=== PATIENT | female | born 1970 | race Two or more races ===

== ENCOUNTER 2024-12-07 12:17 | Outpatient (REF) | payer OTHER, SELFPAY ==
--- OUTSIDE RECORDS SUMMARY | 2024-12-07 09:20 | XMS_ITS | Encounter Summary ---
Author Organization [facility] Address [address] [place] [address] Care Team Providers Care Computerized Mill Mill Recorder Name Role Phone Jamie Nascimento DO Primary Care Provider [phone]- [phone] Jamie Nascimento DO Unavailable [phone] Reason for Visit * Reason Comments Pre-op Visit Gynecologic Exam Encounter Details Date Type Department Care Team (Late st Contact Info) Description 12/07/2024 9:20 AM EDT Office Visit [facility] [address] [facility] [id number] Placido Hendrix DO [address] [place], [facility]11 Pre-op examination; Pelvic pain; Dyspareunia in female; [...] AM EDT Reason for Appointment: Patient ID: hSey Plunkett is a 54 y.o. female who presents for Pre-op Visit and Gynecologic Exam Patient presents today for Pre Op/Annual appointment. Patient is scheduled to undergo Diagnostic Laparoscopy, possible JOSE ANGEL, possible FOE, possible BSO and D&C Hysteroscopy, possible Myosure on 12-31-[address] Hendrix at [facility]. MEDICATIONS Current Outpatient Medications Medication Instructions Ascorbic [...] Date KNEE ARTHROPLASTY Right x4 2010, 2013 [place] LAP, SURG, RADFREQ ABLATION OF UTERINE FIBROID(S), [...] nursing note reviewed. Exam conducted with a senior lead java developer present. Vitals: Estimated body mass index is [...] reviewed, and patient is to proceed to [facility] OR. Follow Up: Patient is to follow up between 1-2 weeks post operative to assess proper healing and recovery fromprocedure. Documented by Irene Leo LPN on behalf of: Placido Hendrix DO documented in this encounter Plan of Treatment Upcoming Encounters Date Type Department Care Team (Late st Contact Info) Description 01/06/2025 11:20 AM EDT Office Visit [facility] [address] [place] [address] Placido Hendrix DO [address] [place] [address] Scheduled Orders Name Type Priority Associated Diagnoses [...] osteoporosis documented in this encounter Care Teams Computerized Mill Mill Recorder Relationship Specialty Start Date End Date Jamie Nascimento DO [address] [place] [address] PCP - General Family Medicine 10/11/22 Jamie Nascimento DO [address] [place] [address] PCP - Medical [place] [employer] 11/08/19 05/04/99 documented as of this encounter
--- OUTSIDE RECORDS SUMMARY | 2024-12-07 12:23 | XMS_ITS | Encounter Summary ---
Author Organization [facility] Address [address] [place] [address] Care Team Providers Care Locomotive Inspector Name Role Phone Jamie Nascimento DO Primary Care Provider [phone]- [phone] Jamie Nascimento DO Unavailable [phone] Encounter Details Date Type Department Care Team (Late st Contact Info) Description 10/11/2022 [facility] [address] [facility] [address] [place] [address] Jamie Nascimento, DO [address] [facility] [address] [place] [address] Social History Tobacco Use Types Packs/Day Years Used Date Smoking Tobacco: Never Smokeless Tobacco: Never Tobacco Cessation:Counseling Given: Not Answered Alcohol Use Standard Drinks/Week Comments Not Currently 0 (1 standard drink = 0.6 oz pure alcohol) caffeine intake: 1-2 cups per day PHQ-2 Answer Date Recorded Patient Health Questionnaire-2 Score 0 10/11/2022 Comments Unknown Sex and Gender Information Value Date Recorded Sex Assigned at Not on file Legal Sex Female 6:42 PM EDT Gender Identity Not on file Sexual Orientation Not on file documented as of this encounter Functional Status * Over the past 2 weeks, how often have you been bothered by any of the following problems? Question Answer Date of Assessment Author Little interest or pleasure in doing things Not at all 10/11/2022 9:50 AM EDT Zina Conteh LPN Feeling down, depressed, or hopeless Not at all 10/11/2022 9:50 AM EDT Zina Conteh LPN Patient Health Questionnaire-2 Score 0 10/11/2022 9:50 AM EDT Genesis Conteh LPN documented as of this encounter Plan of Treatment Upcoming Encounters Date Type Department Care Team (Late st Contact Info) Description 01/06/2025 11:20 AM EDT Office Visit [facility] [address] [facility] [place] [phone] Placido Hendrix DO [address] [place] [address] documented as of this encounter Visit Diagnoses Not on filedocumented in this encounter Care Teams Locomotive Inspector Relationship Specialty Start Date End Date Jamie Nascimento DO [address] [facility] [address] [place] [address] PCP - General Family Medicine 10/11/22 Jamie Nascimento DO [address] [facility] [address] [place] [address] PCP - Medical [place] [employer] 11/08/19 05/04/99 documented as of this encounter
--- OUTSIDE RECORDS SUMMARY | 2024-12-07 12:23 | XMS_ITS | Clinical Summary ---
Author Organization [facility] tem Address [id number] [address] [place] [address] Care Team Providers Care Gunite Mixer Name Role Phone Benarturo Madison M Primary Care Provider [phone]- [phone] Allergies No known active allergies Medications * This document contains information received from the source organization and may not represent a complete record from that organization. No known medications Active Problems Problem Noted Date Diagnosed Date Major depressive disorder, single episode, mild 09/30/2019 Social History Tobacco Use Types Packs/Day Years Used Date Smoking Tobacco: Never Smokeless Tobacco: Never Alcohol Use Standard Drinks/Week Comments Yes 0 (1 standard drink = 0.6 oz pur e alcohol) Childcare Answer Date Recorded Childcare Unknown 10/14/2018 Employment Answer Date Recorded Employment Unknown 10/14/2018 Purpose - Life Answer Date Recorded Purpose and direction in life Unknown Comments Unknown Sex and Gender Information Value Date Recorded Sex Assigned at Not on file Legal Sex Female 11:48 AM EDT Gender Identity Not on file Sexual Orientation Not on file Last Filed Vital Signs Vital Sign Reading Time Taken Comments Blood Pressure 143/83 09/03/2019 6:15 PM EDT Pulse 73 09/03/2019 5:21 PM EDT Temperature 36.4 C (97.6 F) 09/03/2019 5:21 PM EDT Respiratory Rate 16 09/03/2019 5:21 PM EDT Oxygen Saturation 98% 09/03/2019 6:20 PM EDT Inhaled Oxygen Concentration - - Weight 81.6 kg (180 lb) 09/03/2019 5:21 PM EDT Height 170.2 cm (5' 7 ) 09/03/2019 5:21 PM EDT Body Mass Index 28.19 09/03/2019 5:21 PM EDT Plan of Treatment Health Maintenance Due Date Last Done Comments Depression Screening 1980 Tobacco Screening 1980 Adult BMI Screening 1986 DTaP,Tdap and Td Vaccines (1 - Tdap) 07/08/1987 Pap Smear 1989 Zoster (Shingles) Vaccine (1 of 2) 2018 Influenza Vaccine 01/03/2025 Medical Devices Not on file Insurance [employer] Care Teams Gunite Mixer Relationship Specialty Start Date End Date Madison Nascimento DO [address] [place] [address] PCP - General Family Medicine 09/03/19
--- OUTSIDE RECORDS SUMMARY | 2024-12-07 12:23 | XMS_ITS | Clinical Summary ---
Author Organization [facility] Address [address] [place] [address] Phone Care Team Providers Care Assistance Specialist Name Role Phone Unavailable Primary Care Provider Unavailabl e Social History Tobacco Use Types Packs/Day Years Used Date Smoking Tobacco: Never Assessed Comments Unknown Sex and Gender Information Value Date Recorded Sex Assigned at Not on file Legal Sex Female 12:03 PM EDT Gender Identity Not on file Sexual Orientation Not on file Plan of Treatment Not on file
--- OUTSIDE RECORDS SUMMARY | 2024-12-07 12:23 | XMS_ITS | Clinical Summary ---
Author Organization [facility] Address [address] [place] [address] Care Team Providers Care Interior Design Instructor Name Role Phone Jamie Nascimento DO Primary Care Provider +1- [phone] Jamie Nascimento DO Unavailable [phone] Allergies No known active allergies Medications Multiple Vitamin (Multi Vitamin) tablet 1 (one) time each day at the same time. Active Vitamin D-Vitamin K (VITAMIN K2-VITAMIN D3 PO) Take by mouth Active Ascorbic Acid (VITAMIN C ER PO) Take by mouth Active magnesium 30 MG tablet Take 30 mg by mouth in the morning and 30 mg before bedtime. Active Active Problems Problem Noted Date Diagnosed Date Mixed hyperlipidemia 10/11/2022 IFG (impaired fasting glucose) 10/11/2022 Major depressive disorder, single episode, mild 09/30/2019 Vitamin D deficiency 10/14/2018 Resolved Problems Problem Noted Date Diagnosed Date Resolved Date Hypertriglyceridemia 08/07/2020 023 Obesity 08/07/2020 11/11/2022 Abnormal mammogram 07/11/2020 3 Internal derangement of right shoulder 12/22/2019 11/11/2022 Closed fracture of proximal end of right humerus with routine healing 09/20/2019 11/11/2022 Stress 10/15/2018 11/11/2022 Shoulder joint pain 06/09/2017 11/12/19 23 Encounters Date Type Department Care Team Description 12/07/2024 9:20 AM EDT Office Visit [facility] [place] [facility] [address] [place] [address] [place] [id number] Placido Hendrix DO Pre-op examination; Pelvic pain; Dyspareunia in female; Intramural and submucous leiomyoma of uterus; Well woman exam with routine gynecological exam; Osteoporosis, post-menopausal 11/01/2024 3:10 PM EDT [facility] [address] [place] [address] [place] [address] Placido Hendrix DO Pelvic pain in female; History of uterine fibroid 11/01/2024 Bamboo flowsheet [facility] [address] [place] [address] [place] [address] Placido Hendrix DO 10/14/2024 Orders Only [facility] [address] [facility] [place] [address] Gissell King CNM Pelvic pain in female; History of uterine fibroid 10/13/2024 Results [facility] [address] [facility] [place] [address] Claritza Marie MA 10/06/2024 3:00 PM EDT Ancillary Procedure [facility] [address] [place] [address] Abnormal ultrasound of pelvis; History of uterine fibroid 10/06/2024 Travel 10/05/2024 Travel 09/09/2024 Results [facility] [address] [facility] [place] [address] Claritza Marie MA 09/09/2024 Orders Only [facility] [address] [facility] [place] [address] Gissell King CNM Abnormal ultrasound of pelvis; History of uterine fibroid from Last 3 Months Immunizations Immunization Administration Dates Next Due Zoster, Recombinant 01/14/2021 Family History Medical History Relation Name Comments Esophageal cancer Father Heart disease Father Stroke Father Diabetes Maternal Grandfather Hypertension Maternal Grandfather Diabetes Maternal Grandmother Hypertension Maternal Grandmother Diabetes Mother Hypertension Mother Stomach cancer Paternal Grandmother Relation Name Status Comments Father Maternal Grandfather Maternal Grandmother Mother Paternal Grandmother Social History Tobacco Use Types Packs/Day Years [...] Pressure 116/74 12/07/2024 9:48 AM EDT Pulse 62 08/06/2024 8:28 AM EDT Temperature 36.4 C (97.5 F) 08/06/2024 8:28 AM EDT Respiratory Rate - - Oxygen Saturation 97% 08/06/2024 8:28 AM EDT Inhaled Oxygen Concentration - - Weight 88.5 kg (195 lb) 12/07/2024 9:48 AM EDT Height 170.2 cm (5' 7 ) 08/06/2024 8:28 AM EDT Body Mass Index 30.54 08/06/2024 8:28 AM EDT Plan of Treatment Upcoming Encounters Date Type Department Care Team (Late st Contact Info) Description 01/06/2025 11:20 AM EDT Office Visit [facility] [address] [place] [address] Placido Hendrix DO [address] [facility] [place] [address] Health Maintenance Due Date Last Done Comments CT Colonography 1970 FIT-DNA 1970 FIT 1970 FOBT 1970 Sigmoidoscopy 1970 Influenza Vaccine (#1) 2025 Pap Smear 07/08/2025 07/08/2022 Mammogram 08/18/2025 08/18/2024, 07/03, 07/08/2022, Additional history exists Cervical Cancer Screening 07/09/2027 HPV/Cotest 07/09/2027 07/08/2022, 09/29/2018 Colonoscopy 11/11/2028 11/11/2018 Colorectal Cancer Screening 11/11/2028 Procedures Procedure Name Priority Date/Time Associated Diagnosis Comments MR PELVIS W AND WO CONTRAST Routine 10/06/2024 4:12 PM EDT Abnormal ultrasound of pelvis History of uterine fibroid BI MAMMOGRAM SCREENING TOMOSYNTHESIS BILATERAL Routine 08/18/2024 4:18 PM EDT Breast cancer screening by mammogram THINPREP PAP AND HPV MRNA E6/E7 REFLEX HPV 16,18/45 Routine 07/08/2022 PAP SMEAR Routine 07/08/2022 12:00 AM EST COLONOSCOPY Routine 11/11/2018 12:00 PM EDT from Last 3 Months or Most Recently Relevant to Health Maintenance Results * MR pelvis w and wo contrast (10/06/2024 4:12 PM EDT) Anatomical Region Laterality Modality Body, Pelvis Magnetic Resonan ce 10/08/2024 12:4 7 PM EDT Narrative 10/08/2024 12:47 PM EDT EXAM: MRI Pelvis with and without Contrast: REASON FOR EXAM: Abnormal pelvic ultrasound, pelvic pain. COMPARISON: Pelvic ultrasound August 24, 2024. TECHNIQUE: Multiplanar multisequence MRI evaluation is performed with and without contrast. CONTRAST: Vueway 9 mL FINDINGS: Regional soft tissues and muscles demonstrate normal bulk, signal intensity and symmetry. The neurovascular bundles of the pelvis are intact. There is no pelvic ascites. The visualized bowel is normal. The bladder is partially decompressed. Multiple nabothian cysts are present within the cervix. These are well circumscribed, T2 hyperintense, the largest measuring approximately 7 mm in diameter and nonenhancing. The uterus is diminutive. Normal signal intensity is absent. The endometrial stripe is not visualized as a discrete structure. Multiple, slightly T2 hypointense, T1 isointense masses are present within the uterus, predominantly the left uterine body -- the most discrete subserosal 1.9 x 2.07 x 2.36 cm and just above this finding a 2 cm faintly rim-enhancing nodule, myometrial. The uterus overall measures 4.89 x 3.63 x 3.57 cm. The ovaries are not enlarged. Bone marrow signal intensity is physiologic. IMPRESSION: 1. Multiple subserosal and myometrial intrauterine fibroids with ill-defined uterine architecture consistent with diffuse infiltration. 2. Endometrium not visualized due to architectural distortion. 3. Nabothian cysts. This report is generated using voice recognition reporting (MyCosmik). On occasion, MyCosmik erroneously drops words from the report or replaces the spoken word with a similar sounding word. Please call with any questions/concerns regarding the report. Dictated and transcribed 10/07/2024/nico This report has been electronically signed and approved by the interpreting radiologist. Procedure Note Bob Cabrera MD - 10/08/2024 EXAM: MRI Pelvis with and without Contrast: REASON FOR EXAM: Abnormal pelvic ultrasound, pelvic pain. COMPARISON: Pelvic ultrasound August 24, 2024. TECHNIQUE: Multiplanar multisequence MRI evaluation is performed with andwithout contrast. CONTRAST: Vueway 9 mL FINDINGS: Regional soft tissues and muscles demonstrate normal bulk, signalintensity and symmetry. The neurovascular bundles of the pelvis are intact. There is no pelvic ascites. The visualized bowel is normal. The bladder is partially decompressed. Multiple nabothian cysts are present within the cervix. These are wellcircumscribed, T2 hyperintense, the largest measuring approximately 7 mmin diameter and nonenhancing. The uterus is diminutive. Normal signal intensity is absent. Theendometrial stripe is not visualized as a discrete structure. Multiple,slightly T2 hypointense, T1 isointense masses are present within theuterus, predominantly the left uterine body -- the most discretesubserosal 1.9 x 2.07 x 2.36 cm and just above this finding a 2 cm faintlyrim-enhancing nodule, myometrial. The uterus overall measures 4.89 x 3.63x 3.57 cm. The ovaries are not enlarged. Bone marrow signal intensity is physiologic. IMPRESSION: 1. Multiple subserosal and myometrial intrauterine fibroids withill-defined uterine architecture consistent with diffuse infiltration. 2. Endometrium not visualized due to architectural distortion. 3. Nabothian cysts. This report is generated using voice recognition reporting (MyCosmik).On occasion, La Ruche qui dit Ouicribe erroneously drops words from the report orreplaces the spoken word with a similar sounding word. Please call withany questions/concerns regarding the report. Dictated and transcribed 10/07/2024/nico This report has been electronically signed and approved by theinterpreting radiologist. Gissell White Jenjulia CN IM MRI PROCEDURES Final Res ult * Bilateral screening mammogram with tomosynthesis (08/18/2024 4:18 PM EDT) Anatomical Region Laterality Modality Breast Bilateral Mammography 08/19/2024 11:0 7 AM EDT Impressions 08/19/2024 11:13 AM EDT Impression: No specific evidence of malignancy seen in either breast. BIRADS 2 - Benign Findings DENSITY: The breasts are almost entirely fatty. FOLLOW-UP: Routine Screening Mammogram ELECTRONICALLY SIGNED BY: Pancho Elaine M.D. Narrative 08/19/2024 11:13 AM EDT Examination: BI MAMMOGRAM SCREENING TOMOSYNTHESIS BILATERAL Clinical History: screening Technique: Screening digital mammography study of both breasts was performed with 2-D and 3-D tomosynthesis imaging. Study was compared to the prior exam dated 07/15/2023. Findings: There is no evidence of interval dominant spiculated mass, grouped microcalcifications, or skin thickening which would be suggestive of malignancy. A few benign calcifications are seen on the right. Procedure Note Pancho Elaine MD - 08/19/2024 Examination: BI MAMMOGRAM SCREENING TOMOSYNTHESIS BILATERAL Clinical History: screening Technique: Screening digital mammography study of both breasts wasperformed with 2-D and 3-D tomosynthesis imaging. Study was compared tothe prior exam dated 07/15/2023. Findings: There is no evidence of interval dominant spiculated mass,grouped microcalcifications, or skin thickening which would be suggestiveof malignancy. A few benign calcifications are seen on the right. IMPRESSION: Impression: No specific evidence of malignancy seen in either breast. BIRADS 2 - Benign Findings DENSITY: The breasts are almost entirely fatty. FOLLOW-UP: Routine Screening Mammogram ELECTRONICALLY SIGNED BY: Pancho Elaine M.D. Gissell King [facility] IMG BI PROCEDURES Final Resu lt * THINPREP PAP AND HPV MRNA E6/E7 REFLEX HPV 16,18/45 (07/08/2022) CLINICAL INFORMATION: None given [facility] LMP: NONE GIVEN [facility] PREV. PAP: NONE GIVEN [facility] PREV. BX: NONE GIVEN [facility] SOURCE: None given [facility] STATEMENT OF ADEQUACY: SEE COMMENT [facility] Comment: Satisfactory for evaluation. Endocervical/transformation zone component present. INTERPRETATION/R ESULT: Negative for intraepithelial lesion or malignancy. [facility] INFECTION: Fungal organisms morphologically consistent with Teresa spp. [facility] FLAT SPRING ASSEMBLER : SEE COMMENT [facility] Comment: [facility], CT(ASCP) CT Screening Location: [place] [address] REVIEW FLAT SPRING ASSEMBLER : SEE COMMENT [facility] Comment: [facility], CT(ASCP) CT screening location: [place] [address]. COMMENT SEE COMMENT [facility] Comment: EXPLANATORY NOTE: The Pap is a screening test for cervical cancer. It is not a diagnostic test and is subject to false negative and false positive results. It is most reliable when a satisfactory sample, regularly obtained, is submitted with relevant clinical findings and history, and when the Pap result is evaluated along with historic and current clinical information. HPV MRNA E6/E7 Not Detected Not Detected [facility] Comment: Methodology: Jig Hand-Mediated Amplification This assay detects E6/E7 viral messenger RNA (mRNA) from 14 high-risk HPV types (16,18,31,33,35,39,45,51,52,56,58,59,66,68). Cervical sources are required for HPV testing. If a vaginal source from a patient who has had a total hysterectomy with removal of cervix was submitted, please contact the testing laboratory for alternative testing options. For additional information, please refer to http://education.[employer] Atlantic/faq/TIQ346x4 (This link if provided for information/ educational purposes only.) 07/08/2022 Gissell L Floro CN [facility] Final Result [facility] * Pap Smear (07/08/2022 12:00 AM EST) Swab Cervical swab / Unknown Gissell L Floro CN LAB CYTOLOGY ORDERABLES Ashley l Result EXTERNAL LAB * Colonoscopy (11/11/2018 12:00 PM EDT) Anatomical Region Laterality Modality Endoscopy 11/11/2018 12:0 0 PM EDT Narrative 11/11/2018 12:00 PM EDT PERFORMED AT [facility] LOCATION:[id number] Procedure Note CONVERSION, GENERIC - 09/18/2022 PERFORMED AT [facility] LOCATION:[id number] Jamie Nascimento DO ENDOSCOPY PROCEDURE ORDERA BLES Final Result from Last 3 Months or Most Recently Relevant to Health Maintenance Insurance [employer] Care Teams Interior Design Instructor Relationship Specialty Start Date End Date Jamie Nascimento DO [address] [facility] [address] [place] [address] PCP - General Family Medicine 10/11/22 Jamie Nascimento DO [address] [address] PCP - Medical [facility] 11/08/19 05/04/99
--- OUTSIDE RECORDS SUMMARY | 2024-12-07 12:23 | XMS_ITS | Encounter Summary ---
Author Organization [facility] Address [address] [place] [address] Care Team Providers Care Photoengraving Machine Operator/Tender Name Role Phone Jamie Nascimento DO Primary Care Provider [phone]- [phone] Jamie Nascimento DO Unavailable [phone] Encounter Details Date Type Department Care Team (Late Contact Info) Description 08/24/2024 Results Follow-Up [facility] [address] [place] [address] Gissell King CNM [address] [place], [place] [id number] Social History Tobacco Use Types Packs/Day Years [...] on file documented as of this encounter Plan of Treatment Upcoming Encounters Date Type Department Care Team (Late st Contact Info) Description 01/06/2025 11:20 AM EDT Office Visit [facility] [facility] [address] [facility] [place] [address] Placido Hendrix DO [address] [place] [address] documented as of this encounter Visit Diagnoses Not on filedocumented in this encounter Care Teams Photoengraving Machine Operator/Tender Relationship Specialty Start Date End Date Jamie Nascimento DO [address] [facility] [address] [facility] [address] [place] [address] PCP - General Family Medicine 10/11/22 Jamie Nascimento DO [address] [facility] [address] [place] [address] PCP - Medical [place] [employer] 11/08/19 05/04/99 documented as of this encounter
--- OUTSIDE RECORDS SUMMARY | 2024-12-07 12:23 | XMS_ITS | Encounter Summary ---
Author Organization [facility] Address [address] [place] [address] Care Team Providers Care Spiral Machine Operator Name Role Phone Jamie Nascimento DO Primary Care Provider [phone] Jamie Nascimento DO Unavailable [phone] Encounter Details Date Type Department Care Team (Late Contact Info) Description 09/09/2024 Results Follow-Up [facility] [address] [place] [address] Claritza Marie MA Social History Tobacco Use Types Packs/Day Years [...] 01/06/2025 11:20 AM EDT Office Visit [facility] [address] [facility] [place] [address] Placido Hendrix DO [address] [place] [address] documented as of this encounter Visit Diagnoses Not on filedocumented in this encounter Care Teams Spiral Machine Operator Relationship Specialty Start Date End Date Jamie Nascimento DO [address] [place] [address] PCP - General Family Medicine 10/11/22 Jamie Nascimento DO [address] [place] [address] PCP - Medical [place] [employer] 11/08/19 05/04/99 documented as of this encounter
--- OUTSIDE RECORDS SUMMARY | 2024-12-07 12:23 | XMS_ITS | Encounter Summary ---
Author Organization [facility] Address [address] [place] [address] Care Team Providers Care Studio Data Analyst Name Role Phone Jamie Nascimento DO Primary Care Provider +1- [phone] Jamie Nascimento DO Unavailable [phone] Encounter Details Date Type Department Care Team (Late Contact Info) Description 10/13/2024 Results Follow-Up [facility] [address] [place] [address] Claritza Marie MA Social History [...] AM EDT Office Visit [facility] [address] [facility] [place] [address] Placido Hendrix DO [address] [place] [address] documented as of this encounter Visit Diagnoses Not on filedocumented in this encounter Care Teams Studio Data Analyst Relationship Specialty Start Date End Date Jamie Nascimento DO [address] [place] [address] PCP - General Family Medicine 10/11/22 Jamie Nascimento DO [address] [place] [address] PCP - Medical [place] [employer] 11/08/19 05/04/99 documented as of this encounter
[2024-12-09 14:09] LABS: Age Gdln ACOG Testing Note (.); IGP, Aptima HPV, rfx 16/18,45 Note (.)
== END 2024-12-07 12:18 | disposition home or self-care (01) ==
LOC: LAB 12:17
PROVIDERS: Visit Provider Obstetrics & Gynecology
DX: Z01.419 Encounter for gynecological examination (general) (routine) without abnormal findings (principal)
CPT/HCPCS: 87624; 88175

== ENCOUNTER 2024-12-17 08:59 | Outpatient (OUT) | payer OTHER, SELFPAY ==
--- OUTSIDE RECORDS SUMMARY | 2024-12-07 09:20 | XMS_ITS | Encounter Summary ---
Author Organization [facility] Address [address] [place] [address] Care Team Providers Care Hull Sorter Name Role Phone Jamie Nascimento DO Primary Care Provider +1- [phone] Jamie Nascimento DO Unavailable [phone] Reason for Visit * Reason Comments Pre-op Visit Gynecologic Exam Encounter Details Date Type Department Care Team (Late st Contact Info) Description 12/07/2024 9:20 AM EDT Office Visit [facility] [address] [facility] [place] [id number] Placido Hendrix DO [address] [place], [facility]11 Pre-op examination; Pelvic pain; Dyspareunia in female; Intramural and submucous leiomyoma of uterus; Well woman exam with routine gynecological exam; Osteoporosis, post-menopausal Social History Tobacco Use Types Packs/Day Years Used Date Smoking Tobacco: Never Smokeless Tobacco: Never Alcohol Use Standard Drinks/Week Comments Not Currently 0 (1 standard drink = 0.6 oz pure alcohol) caffeine intake: 1-2 cups per day PHQ-2 Answer Date Recorded Patient Health Questionnaire-2 Score 0 08/06/2024 Comments No Sex and Gender Information Value Date Recorded Sex Assigned at Not on file Legal Sex Female 6:42 PM EDT Gender Identity Not on file Sexual Orientation Not on file documented as of this encounter Last Filed Vital Signs Vital Sign Reading Time Taken Comments Blood Pressure 116/74 12/07/2024 9:48 AM EDT Pulse - - Temperature - - Respiratory Rate - - Oxygen Saturation - - Inhaled Oxygen Concentration - - Weight 88.5 kg (195 lb) 12/07/2024 9:48 AM EDT Height - - Body Mass Index 30.54 08/06/2024 8:28 AM EDT documented in this encounter Progress Notes * Florinda Chavez - 12/07/2024 9:20 AM EDT Reason for Appointment: Patient ID: Shey Plunkett is a 54 y.o. female who presents for Pre-op Visit and Gynecologic Exam Patient presents today for Pre Op/Annual appointment. Patient is scheduled to undergo Diagnostic Laparoscopy, possible JOSE ANGEL, possible FOE, possible BSO and D&C Hysteroscopy, possible Myosure on 12-31-[address] Hendrix at [facility]. MEDICATIONS Current Outpatient Medications Medication Instructions Ascorbic Acid (VITAMIN C ER PO) Take by mouth magnesium 30 mg, 2 times daily Multiple Vitamin (Multi Vitamin) tablet Every 24 hours Vitamin D-Vitamin K (VITAMIN K2-VITAMIN D3 PO) Take by mouth ALLERGIES No Known Allergies PROBLEMS Active Ambulatory Problems Diagnosis Date Noted Mixed hyperlipidemia 10/11/2022 IFG (impaired fasting glucose) 10/11/2022 Major depressive disorder, single episode, mild 09/30/2019 Vitamin D deficiency 10/14/2018 Resolved Ambulatory Problems Diagnosis Date Noted Abnormal mammogram 07/11/2020 Closed fracture of proximal end of right humerus with routine healing 09/20/2019 Hypertriglyceridemia 08/07/2020 Internal derangement of right shoulder 12/22/2019 Obesity 08/07/2020 Shoulder joint pain 06/09/2017 Stress 10/15/2018 Past Medical History: Diagnosis Date Hx of menorrhagia Hyperlipidemia Patella fracture Proximal humeral fracture 09/03/2019 HISTORY PAST MEDICAL HISTORY SOCIAL HISTORY Past Medical History: Diagnosis Date Abnormal mammogram 07/11/2020 Closed fracture of proximal end of right humerus with routine healing 09/20/2019 Hx of menorrhagia Hyperlipidemia Hypertriglyceridemia 08/07/2020 IFG (impaired fasting glucose) Patella fracture Proximal humeral fracture 09/03/2019 right Social History Tobacco Use Smoking status: Never Smokeless tobacco: Never Substance Use Topics Alcohol use: Not Currently Comment: caffeine intake: 1-2 cups per day Drug use: Never FAMILY HISTORY Family History Problem Relation Name Age of Onset Diabetes Mother Hypertension Mother Esophageal cancer Father Heart disease Father Stroke Father Diabetes Maternal Grandmother Hypertension Maternal Grandmother Diabetes Maternal Grandfather Hypertension Maternal Grandfather Stomach cancer Paternal Grandmother SURGICAL HISTORY Past Surgical History: Procedure Laterality Date KNEE ARTHROPLASTY Right x4 2010, 2013 [place] LAP, SURG, RADFREQ ABLATION OF UTERINE FIBROID(S), INC INTRAOP GUIDE-MONITOR TONSILLECTOMY VAGINAL DELIVERY x2 1997, 1998 REVIEW OF SYSTEMS Review of Systems: Review of Systems Constitutional: Negative. HENT: Negative. Eyes: Negative. Respiratory: Negative. Cardiovascular: Negative. Gastrointestinal: Negative. Genitourinary: Positive for dyspareunia and pelvic pain. Musculoskeletal: Negative. Skin: Negative. Neurological: Negative. All other systems reviewed and are negative. Hematological: Negative. Endocrine: Negative. Allergic/Immunologic: Negative. OBJECTIVE Objective: Physical Exam Constitutional: Appearance: Normal appearance. She is well-developed. Genitourinary: Vulva normal. Breasts: Breasts are soft. Right: Normal. Left: Normal. Cardiovascular: Rate and Rhythm: Normal rate and regular rhythm. Pulmonary: Effort: Pulmonary effort is normal. Breath sounds: Normal breath sounds. Abdominal: General: Bowel sounds are normal. There is no distension. Palpations: Abdomen is soft. Tenderness: There is no abdominal tenderness. There is no guarding or rebound. Musculoskeletal: General: No swelling. Normal range of motion. Right lower leg: No edema. Left lower leg: No edema. Neurological: Mental Status: She is alert and oriented to person, place, and time. Skin: General: Skin is warm and dry. Psychiatric: Mood and Affect: Mood normal. Behavior: Behavior normal. Vitals and nursing note reviewed. Exam conducted with a math tutor present. Vitals: Estimated body mass index is 30.29 kg/m?? as calculated from the following: Height as of 08/06/24: 5' 7 . Weight as of 11/01/24: 193 lb 6.4 oz. BP: No LMP recorded. Patient is postmenopausal. ASSESSMENT & PLAN ICD-10-CM 1. Pre-op examination Z01.818 2. Pelvic pain R10.2 3. Dyspareunia in female N94.10 4. Intramural and submucous leiomyoma of uterus D25.1 D25.0 Annual: Patient presents today for an annual exam. Patient states she is doing well. Pap was obtained without difficulty. Pre Op: Patient is doing well but has complaints of pelvic pain, dyspareunia and uterine fibroids. I have discussed conservative management vs. surgical management with the patient in detail and patient desires surgical management at this time. Patient will undergo Diagnostic Laparoscopy, possible JOSE ANGEL, possible FOE, possible BSO and D&C Hysteroscopy, possible Myosure on 12-31-24. Surgical consents were signed, mmc was reviewed, and patient is to proceed to [facility] OR. Follow Up: Patient is to follow up between 1-2 weeks post operative to assess proper healing and recovery fromprocedure. Documented by Irene Leo LPN on behalf of: Placido Hendrix DO documented in this encounter Plan of Treatment Upcoming Encounters Date Type Department Care Team (Late st Contact Info) Description 01/06/2025 11:20 AM EDT Office Visit [facility] [address] [place] [phone] Placido Hendrix DO [address] [place] [address] Scheduled Orders Name Type Priority Associated Diagnoses Orde r Schedule DEXA bone density Imaging Routine Osteoporosis, post-menopausal Expected: 12/07/2024 (Approximate), Expires: 12/07/2025 THIN PREP TIS PAP AND HR HPV DNA Pathology and Cytology Routine Well woman exam with routine gynecological exam Ordered: 12/07/2024 documented as of this encounter Visit Diagnoses Diagnosis Pre-op examination Pelvic pain Dyspareunia in female Intramural and submucous leiomyoma of uterus Well woman exam with routine gynecological exam Routine gynecological examination Osteoporosis, post-menopausal Senile osteoporosis documented in this encounter Care Teams Hull Sorter Relationship Specialty Start Date End Date Jamie Nascimento DO [address] [place] [address] PCP - General Family Medicine 10/11/22 Jamie Nascimento DO [address] [place] [address] PCP - Medical [place] [employer] 11/08/19 05/04/99 documented as of this encounter
--- NOTE | 2024-12-17 09:05 | ECG_ITS ---
[facility] Test Date: 2024-12-17 Pat Name: ALLISON PAYTON Department: Room: - Gender: Female Foot Gatherer: : 1970 Requested By: ROMEL FLORES Order Number: [id number] Reading MD: JAVIER COSTA M.D. Measurements Intervals [place] Rate: 64 P: 8 [place]: 161 QRS: -3 QRSD: 85 T: 11 QT: 415 QTc: 431 Interpretive Statements SINUS RHYTHM LOW QRS VOLTAGE IN PRECORDIAL LEADS [QRS DEFLECTION < 1.0 mV IN CHEST LEADS] Borderline ECG No previous ECG available for comparison Electronically Signed On 12-17-2024 20:49:59 EDT by JAVIER COSTA M.D.
--- OUTSIDE RECORDS SUMMARY | 2024-12-17 09:05 | XMS_ITS | Encounter Summary ---
Author Organization [facility] Address [address] [place] [address] Care Team Providers Care Agricultural Loan Officer Name Role Phone Jamie Nascimento DO Primary Care Provider [phone]- [phone] Jamie Nascimento DO Unavailable [phone] Encounter Details Date Type Department Care Team (Late st Contact Info) Description 12/07/2024 Clinisync Result Encounter [facility] External Department Unsolicited Placido Hendrix DO [address] [place] [address] Social History Tobacco Use Types Packs/Day Years [...] Description 01/06/2025 11:20 AM EDT Office Visit [facility] [place] [facility] [address] [place] [address] Placido Hendrix DO [address] [place] [address] documented as of this encounter Procedures Procedure Name Priority Date/Time Associated Diagnosis Comments IGP,APTIMA HPV,AGE GDLN Routine 12/07/2024 9:38 AM EDT documented in this encounter Results * IGP,APTIMA HPV,AGE GDLN (12/07/2024 9:38 AM EDT) AGE GDLN ACOG TESTING Note . [facility] Comment: TESTS RESULT FLAG UNITS REF RANGE LAB Clinician Provided Cytology Information Source.............Cervix;Endocervix No. of containers..01 ThinPrep Vial Age Algo ACOG Alyse... 30-65 01 FLAG LEGEND: L-Low Normal,H-High Normal,LL-Alert Low,HH-Alert High <-Panic Low,>-Panic High,A-Abnormal,AA-Critical Abnormal Performed at: 01 [address] [place] [address] Mayra Toussaint MD, IGP, APTIMA HPV, RFX 16/18,45 Note . [facility] Comment: TESTS RESULT FLAG UNITS REF RANGE LAB DIAGNOSIS: 02 NEGATIVE FOR INTRAEPITHELIAL LESION OR MALIGNANCY. Specimen adequacy: 02 Satisfactory for evaluation. Endocervical and/or squamous metaplastic cells (endocervical component) are present. Performed by: 02 Amanda Dhaliwal Supervisor [employer] ([facility]) . 02 Note: Note 02 The Pap smear is a screening test designed to aid in the detection of premalignant and malignant conditions of the uterine cervix. It is not a diagnostic procedure and should not be used as the sole means of detecting cervical cancer. Both false-positive and false-negative reports do occur. Test Methodology: Note 02 This liquid based ThinPrep(R) pap test was screened with the use of an image guided system. HPV Genotype Reflex Note 02 Criteria not met, HPV Genotype not performed. FLAG LEGEND: L-Low Normal,H-High Normal,LL-Alert Low,HH-Alert High <-Panic Low,>-Panic High,A-Abnormal,AA-Critical Abnormal Performed at: [address] [place] [address], [place] [address] Mayra Toussaint MD, HPV APTIMA Negative Negative TB Comment: This nucleic acid amplification test detects fourteen high- risk HPV types (16,18,31,33,35,39,45,51,52,56,58,59,66,68) without differentiation. Performed at: =[address] [id number] Student Career Development Specialist: Mayra Toussaint MD, Phone: [phone] Performed at: [address] [id number] Student Career Development Specialist: Mayra Toussaint MD, Phone: [phone] 12/07/2024 9:38 AM EDT 12/07/2024 12:21 PM EDT Narrative [facility] - 12/09/2024 2:09 PM EDT BRUSH-SPATULA CERVIX ENDOCERVIX us Placido Hendrix DO LAB BLOOD ORDERABLES Final Resul t [facility] documented in this encounter Visit Diagnoses Not on filedocumented in this encounter Care Teams Agricultural Loan Officer Relationship Specialty Start Date End Date Jamie Nascimento DO [address] [place] [address] PCP - General Family Medicine 10/11/22 Jamie Nascimento DO [address] [place] [address] PCP - Medical [place] [employer] 11/08/19 05/04/99 documented as of this encounter
--- OUTSIDE RECORDS SUMMARY | 2024-12-17 09:05 | XMS_ITS | Encounter Summary ---
Author Organization [facility] Address [address] [place] [address] Care Team Providers Care Adventure Therapist Name Role Phone Jamie Nascimento DO Primary Care Provider [phone]- [phone] Jamie Nsacimento DO Unavailable [phone] Encounter Details Date Type Department Care Team (Latest Contact Info) Description 08/24/2024 Results Follow-Up [facility] [address] [place] [address] Gissell King CNM [address] [place], [place] [phone] Bilateral screening mammogram with tomosynthesis Social History Tobacco Use Types Packs/Day Years [...] 11:20 AM EDT Office Visit [facility] [place] [facility] [address] [place] [address] Placido Hendrix DO [address] [place] [address] documented as of this encounter Visit Diagnoses Not on filedocumented in this encounter Care Teams Adventure Therapist Relationship Specialty Start Date End Date Jamie Nascimento DO [address] [place] [address] PCP - General Family Medicine 10/11/22 Jamie Nascimento DO [address] [place] [address] PCP - Medical [place] [employer] 11/08/19 05/04/99 documented as of this encounter
--- OUTSIDE RECORDS SUMMARY | 2024-12-17 09:05 | XMS_ITS | Encounter Summary ---
Author Organization [facility] Address [address] [place] [address] Care Team Providers Care Marketing Instructor Name Role Phone Jamie Nascimento DO Primary Care Provider [phone]- [phone] Jamie Nascimento DO Unavailable [phone] Encounter Details Date Type Department Care Team (Late st Contact Info) Description 10/11/2022 Abstract [facility] [address] [facility] [address] [place] [address] Jamie Nascimento, DO [address] [facility] [address] [place] [address] Social History Tobacco Use Types Packs/Day Years [...] EDT Office Visit [facility] [address] [place] [address] Placido Hendrix DO [address] [place] [address] documented as of this encounter Visit Diagnoses Not on filedocumented in this encounter Care Teams Marketing Instructor Relationship Specialty Start Date End Date Jamie Nascimento DO [address] [facility] [address] [place] [address] PCP - General Family Medicine 10/11/22 Jamie Nascimento DO [address] [facility] [address] [place] [address] PCP - Medical [place] [employer] 11/08/19 05/04/99 documented as of this encounter
--- OUTSIDE RECORDS SUMMARY | 2024-12-17 09:05 | XMS_ITS | Clinical Summary ---
Author Organization [facility] Address [address] [place] [address] Care Team Providers Care Microeconomics Professor Name Role Phone Jamie Nascimento DO Primary Care Provider [phone]- [phone] Jamie Nascimento DO Unavailable [phone] Allergies No known active allergies Medications Multiple [...] AM EDT Office Visit [facility] [place] [facility] [address] [place] [address] [place] [id number] Placido Hendrix, Pre-op examination; Pelvic pain; Dyspareunia in female; Intramural and submucous leiomyoma of uterus; Well woman exam with routine gynecological exam; Osteoporosis, post-menopausal 12/07/2024 Clinisync Result Encounter [facility] External Department Unsolicited Placido Hendrix DO 11/01/2024 3:10 PM EDT Consult [facility] [address] [place] [address] Placido Hendrix DO Pelvic pain in female; History of uterine fibroid 11/01/2024 Bamboo flowsheet [facility] [address] [place] [address] Placido Hendrix DO 10/14/2024 Orders Only [facility] [address] [place] [address] Gissell King CNM Pelvic pain in female; History of uterine fibroid 10/13/2024 [facility] [address] [place] [address] Claritza Marie MA MR pelvis w and wo contrast 10/06/2024 3:00 PM EDT [facility]illary [facility] [address] [facility] [address] [place] [id number] Abnormal ultrasound of pelvis; History of uterine fibroid 10/06/2024 Travel 10/05/2024 Travel from Last 3 Months Immunizations Immunization Administration [...] 11:20 AM EDT Office Visit [facility] [place] [facility] [address] [place] [address] Placido Hendrix DO [address] [facility] [address] [place], [place] [id number] Health Maintenance Due Date Last Done Comments [...] HPV,AGE GDLN Routine 12/07/2024 9:38 AM EDT MR PELVIS W AND WO CONTRAST Routine [...] Recently Relevant to Health Maintenance Results * IGP,APTIMA HPV,AGE GDLN (12/07/2024 9:38 AM EDT) HILL GDLN ACOG TESTING Note . [facility] Comment: TESTS RESULT FLAG UNITS REF RANGE LAB Clinician Provided Cytology Information Source.............Cervix;Endocervix No. of containers..01 ThinPrep Vial [place] EDUARDO Alyse... FLAG LEGEND: L-Low Normal,H-High Normal,LL-Alert Low,HH-Alert High <-Panic Low,>-Panic High,A-Abnormal,AA-Critical Abnormal Performed at: 01 =G [facility] [address] [place] [address] Mayra Toussaint MD, IGP, APTIMA HPV, RFX 16/18,45 Note . [facility] Comment: TESTS RESULT FLAG UNITS REF RANGE LAB DIAGNOSIS: 02 NEGATIVE FOR INTRAEPITHELIAL LESION OR MALIGNANCY. Specimen adequacy: 02 Satisfactory for evaluation. Endocervical and/or squamous metaplastic cells (endocervical component) are present. Performed by: 02 Amanda Dhaliwal, Public Relations Consultant (ASCP) . 02 Note: Note 02 The Pap [...] High <-Panic Low,>-Panic High,A-Abnormal,AA-Critical Abnormal Performed at: 02 WB [facility] [place] [address] [place] [address] Mayra Toussaint MD, HPV APTIMA Negative Negative TB Comment: This nucleic acid amplification test detects fourteen high- risk HPV types (16,18,31,33,35,39,45,51,52,56,58,59,66,68) without differentiation. Performed at: = - [facility], [place] [id number] Viner Operator: Mayra Toussaint MD, Phone: [phone] Performed at: - [facility], [place] [id number] Viner Operator: Mayra Toussaint MD, Phone: [phone] 12/07/2024 9:38 AM EDT 12/07/2024 12:21 PM EDT Narrative [facility] - 12/09/2024 2:09 PM EDT BRUSH-SPATULA CERVIX ENDOCERVIX us Placido Hendrix DO LAB BLOOD ORDERABLES Final Resul t [facility] * MR pelvis w and wo contrast [...] report is generated using voice recognition reporting (Coreworx). On occasion, Coreworx erroneously drops words from the report or replaces the spoken word with a similar sounding word. Please call with any questions/concerns regarding the report. Dictated and transcribed 10/07/2024/jf This report has been electronically signed and [...] report is generated using voice recognition reporting (Coreworx).On occasion, SwipeClockcribe erroneously drops words from the report orreplaces the spoken word with a similar sounding word. Please call withany questions/concerns regarding the report. Dictated and transcribed 10/07/2024/nico This report has been electronically signed and approved by theinterpreting radiologist. Gissell CAMPOS IM MRI PROCEDURES Final Res ult * [...] ELECTRONICALLY SIGNED BY: Pancho Elaine M.D. Gissell CAMPOS IMG BI PROCEDURES Final Resu lt * [...] with Teresa spp. [facility] ARCHEOLOGY PROFESSOR : SEE COMMENT [facility] Comment: [facility], CT(ASCP) CT Screening Location: [place] [address] REVIEW ARCHEOLOGY PROFESSOR : SEE COMMENT [facility] Comment: [facility], CT(ASCP) CT screening location: [place] [address]. COMMENT SEE COMMENT [facility] [...] Detected [facility] Comment: Methodology: Prepress Supervisor-Mediated Amplification This assay detects E6/E7 viral messenger RNA (mRNA) from 14 high-risk HPV types (16,18,31,33,35,39,45,51,52,56,58,59,66,68). Cervical sources are required for HPV testing. If a vaginal source from a patient who has had a total hysterectomy with removal of cervix was submitted, please contact the testing laboratory for alternative testing options. For additional information, please refer to http://education.[email or web address]. Laboratories.Cable-Sense/faq/FOY163y7 (This link if provided for information/ educational purposes only.) 07/08/2022 Gissell L Floro CNM [facility] Final Result [facility] * Pap Smear (07/08/2022 12:00 AM EST) Swab Cervical swab / Unknown Gissell L Floro CN LAB CYTOLOGY ORDERABLES Ashley l Result EXTERNAL LAB * Colonoscopy (11/11/2018 12:00 PM EDT) Anatomical Region Laterality Modality Endoscopy 11/11/2018 12:0 0 PM EDT Narrative 11/11/2018 12:00 PM EDT PERFORMED AT [facility] LOCATION:[id number] Procedure Note CONVERSION, GENERIC - 09/18/2022 PERFORMED AT [facility] LOCATION:[id number] Jamie Nascimento DO ENDOSCOPY PROCEDURE ORDERA BLES Final Result from Last 3 Months or Most Recently Relevant to Health Maintenance Insurance [employer] Care Teams Microeconomics Professor Relationship Specialty Start Date End Date Jamie Nascimento DO [address] [place] [address] PCP - General Family Medicine 10/11/22 Jamie Nascimento DO [address] [address] PCP - Medical [facility] 11/08/19 05/04/99
--- OUTSIDE RECORDS SUMMARY | 2024-12-17 09:05 | XMS_ITS | Encounter Summary ---
Author Organization [facility] Address [address] [place] [address] Care Team Providers Care Supreme Court Judge Name Role Phone Jamie Nascimento DO Primary Care Provider [phone] Jamie Nascimento DO Unavailable [phone] Encounter Details Date Type Department Care Team (Late Contact Info) Description 10/13/2024 Results Follow-Up [facility] [address] [place] [address] Claritza Marie MA MR pelvis w and wo contrast Social History Tobacco Use Types Packs/Day Years [...] [address] [facility] [place] [address] Placido Hendrix DO [address] [place] [address] documented as of this encounter Visit Diagnoses Not on filedocumented in this encounter Care Teams Supreme Court Judge Relationship Specialty Start Date End Date Jamie Nascimento DO [address] [place] [address] PCP - General Family Medicine 10/11/22 Jamie Nascimento DO [address] [place] [address] PCP - Medical [place] [employer] 11/08/19 05/04/99 documented as of this encounter
--- OUTSIDE RECORDS SUMMARY | 2024-12-17 09:05 | XMS_ITS | Encounter Summary ---
Author Organization [facility] Address [address] [place] [address] Care Team Providers Care Dancing Master Name Role Phone Jamie Nascimento DO Primary Care Provider [phone] Jamie Nascimento DO Unavailable [phone] Encounter Details Date Type Department Care Team (Latest Contact Info) Description 09/09/2024 Results [facility]-Up [facility] [address] [place] [address] Claritza Marie [place] US pelvis transvaginal Social History Tobacco Use Types Packs/Day Years [...] AM EDT Office Visit [facility] [address] [facility] [place] [address] Placido Hendrix DO [address] [place] [address] documented as of this encounter Visit Diagnoses Not on filedocumented in this encounter Care Teams Dancing Master Relationship Specialty Start Date End Date Jamie Nascimento DO [address] [place] [address] PCP - General Family Medicine 10/11/22 Jamie Nascimento DO [address] [place] [address] PCP - Medical [place] [employer] 11/08/19 05/04/99 documented as of this encounter
--- OUTSIDE RECORDS SUMMARY | 2024-12-17 09:05 | XMS_ITS | Encounter Summary ---
Author Organization [facility] Address [address] [place] [address] Phone Care Team Providers Care Jackhammer Splitter Operator Name Role Phone Unavailable Primary Care Provider Unavailabl e Reason for Referral * Imaging (Routine) - Pending Review Specialty Diagnoses / Procedures Referred By Contac t Referred To Contact Radiology Diagnoses Encounter for general adult medical examination without abnormal findings Procedures CT cardiac scoring wo IV contrast Jamie Nascimento DO [address] [facility] [address] [place] [address] Phone: tel: fax: Referral ID Status Reason Start Date Expiration Date Visits Requested Visits Authorized [id number] Pending Review Perform Procedure 08/10/2024 08/10/2025 1 1 Encounter Details Date Type Department Care Team (Latest Contact Info) Description 08/10/2024 Transcribe Orders [facility] [address] [place] [address] Jamie Nascimento DO [address] [facility] [address] [place] [address] Encounter for general adult medical examination without abnormal findings (Primary Dx) Social History Tobacco Use Types Packs/Day Years Used Date Smoking Tobacco: Never Assessed Comments Unknown Sex and Gender Information Value Date Recorded Sex Assigned at Not on file Legal Sex Female 12:03 PM EDT Gender Identity Not on file Sexual Orientation Not on file documented as of this encounter Plan of Treatment Scheduled Orders Name Type Priority Associated Diagnoses Orde r Schedule CT cardiac scoring wo IV contrast Imaging Routine Encounter for general adult medical examination without abnormal findings Expected: 08/10/2024, Expires: 08/10/2025 documented as of this encounter Visit Diagnoses Diagnosis Encounter for general adult medical examination without abnormal findings- Primary documented in this encounter
--- OUTSIDE RECORDS SUMMARY | 2024-12-17 09:05 | XMS_ITS | Clinical Summary ---
Author Organization [place] [employer] [facility] Address [id number] [address] [place] [address] Care Team Providers Care Client Service Coordinator Name Role Phone Benarturo Madison M Primary Care Provider +1- [phone] Allergies No known active allergies Medications * [...] on file Insurance [employer] Care Teams Client Service Coordinator Relationship Specialty Start Date End Date Madison Nascimento DO [address] [place] [address] PCP - General Family Medicine 09/03/19
--- OUTSIDE RECORDS SUMMARY | 2024-12-17 09:05 | XMS_ITS | Clinical Summary ---
Author Organization [facility] Address [address] [place] [address] Phone Care Team Providers Care Dry Cleaner Presser Name Role Phone Unavailable Primary Care Provider [...]
== END 2024-12-17 09:00 | disposition home or self-care (01) ==
LOC: PST 09:02
PROVIDERS: Visit Provider Obstetrics & Gynecology
DX: Z01.810 Encounter for preprocedural cardiovascular examination (principal); R10.2 Pelvic and perineal pain; N94.10 Unspecified dyspareunia; D25.0 Submucous leiomyoma of uterus
CPT/HCPCS: 93005

== ENCOUNTER 2024-12-31 09:26 | Day surgery (SDC) | payer OTHER, SELFPAY ==
[2024-12-17 09:43] VITALS: PULSE 63; TEMP 36.4; O2SAT 99; BMI 30.4
[2024-12-31] VITALS (10 sets, daily range): BP systolic 137–184; BP diastolic 68–90; PULSE 64–98; TEMP 36.6–36.7; O2SAT 93–97; BMI 30.4
[2024-12-31 09:36] LABS: Hematocrit 42.0 % (36.0-48.0); Hemoglobin 13.9 g/dL (12.0-16.0); Immature Granulocytes Abs Auto 0.04 10^3/uL (0.00-0.03); Immature Granulocytes Pct Auto 0.4 % (0.0-0.5); Lymphocytes Absolute Auto 2.8 10^3/uL (1.2-3.8); Mean Corpuscular HGB Conc 33.1 g/dL (29.9-35.2); Mean Corpuscular Hemoglobin 29.1 pg (26.7-34.0); Mean Corpuscular Volume 87.9 fL (81.0-99.0); Platelet Count 325 10^3/uL (150-450); Red Blood Count 4.78 10^6/uL (4.20-5.40); White Blood Count 9.6 10^3/uL (4.0-11.0)
[2024-12-31] MEDS: SCOPOLAMINE 1 MG/3 DAYS TRANSDERM PATCH 1 PATCH TD (10:30)
[2024-12-31] MEDS: FAMOTIDINE/PF 20 MG/2 ML VIAL IV (10:30)
--- NOTE | 2024-12-31 11:26 | PM.ONB ---
Brief Operative Note Date of procedure: 12/31/24 Pre-op diagnosis general: thickend endometrium, pelvic pain Post-op diagnosis: same as pre-op Procedure: NAME OF PROCEDURE: [d&c hysteroscopy, diagnostic laparoscopy] PROCEDURE: The patient was taken back to the Operating Room where she was prepped and draped in normal sterile fashion after being placed under general anesthesia without difficulty. She was also placed in the dorsal lithotomy position. A weighted speculum was placed in the patient?s vagina. The anterior lip of the cervix was identified and grasped with a single tooth tenaculum. The patient?s uterus was then sounded roughly to [?8 ] cm. The patient was then gently dilated using Hegar dilators. concern for uterine perforation this was confirmed with the hysteroscope as it passed through the patient?s cervix into the uterus. due to significant scar tissue from the prior ablation. The hysteroscope was then removed from the patient's uterus.? unable to obtain endometrial curretting. The single tooth tenaculum was then removed from the patient's anterior lip of the cervix where excellent hemostasis was noted. A sponge stick was placed into the patient's vagina. Attention was turned to the patient's abdomen, where a small umbilical incision was made. The fascia was tented using Jen clamps and the fascia was entered sharply. Confirmation of intraabdominal placement of the 10 mm port was confirmed under direct visualization using a laparoscope. The patient's abdomen was then insufflated using CO2 gas with approximately 4 liters. A second port was placed left laterally, this was done under direct visualization with a 5 mm port. Survey of the patient's abdomen demonstrated normal liver and gallbladder. Survey of the patient's pelvic anatomy demonstrated normal appearing rt and lt ovary and tubes as well as normal appearing uterus. No endometrial implants could be noted, no evidence of any pelvic disease was seen, normal appearing pelvic cavity. large anterior uterine fibroid at the uterine cervical junction. uterine perforation identified, excellent hemostasisi. All instruments were removed from the patient's abdomen. The patient's abdomen was deinsufflated of CO2 gas. The patient tolerated the procedure well. Sponge stick was removed from the patient's vagina. The patient's infraumbilical fascia was closed using #0 Vicryl on a GI needle. The patient's skin was closed laterally and infraumbilically using 4-0 Vicryl. The patient tolerated the procedure well. Sponge, lap and needle counts were correct x 2. The patient was taken to Recovery Room in stable condition. Anesthesia: RACHNAA Surgeon: Placido Hendrix Estimated blood loss (mL): 5 Pathology: none sent Condition: stable Disposition: PACU Urinary Catheter Management Urinary Catheter Management Urethral: Cath placed during this visit: no
[2024-12-31] MEDS: BENZOCAINE/MENTHOL LOZENGE 1 LOZENGE PO (12:12)
--- NOTE | 2024-12-31 12:25 | PC.NURSE ---
Patient sitting in bed. Sipping water and eating peanut butter crackers.
== END 2024-12-31 12:58 | disposition home or self-care (01) ==
LOC: SURGOUT 09:26
PROVIDERS: Visit Provider Obstetrics & Gynecology
PROC: (CPT 840; principal; 2024-12-31 10:50)
DX: R10.2 Pelvic and perineal pain (principal); R93.89 Abnormal findings on diagnostic imaging of other specified body structures; N94.10 Unspecified dyspareunia; D25.0 Submucous leiomyoma of uterus; E78.5 Hyperlipidemia, unspecified; K21.9 Gastro-esophageal reflux disease without esophagitis
CPT/HCPCS: 49320; 58558; 36415; 85025; J1100; J1885; J2250; J2405; J2704; J3010; J3490